=== PATIENT | female | born 1940 | race Caucasian/White ===

== ENCOUNTER 2020-05-04 05:41 | Inpatient (IN) ==
[2020-05-01 11:52] LABS: Basophils % 0.7 % (0.0-0.8); Eosinophils # 0.1 10*3/uL (0.0-0.87); Eosinophils % 1.5 % (0.00-10.9); Hemoglobin 10.6 GM/DL (12.0-16.0); Immature Granulocytes % 0.3 %; Immature Granulocytes Absolute 0.02 #; Lymphocytes # 0.8 10*3/uL (1.4-4.0); Lymphocytes % 12.6 % (21.3-54.2); Mean Corpuscular HGB Conc 32.1 GM/DL (32-36); Mean Corpuscular Volume 87.1 FL (87-102); Mean Platelet Volume 9.5 FL (9.6-12.0); Monocytes % 8.5 % (1.7-12.7); Neutrophils % 76.4 % (38.7-73.9); Platelet Count 234 T/CUMM (130-400); Red Blood Count 3.79 MC/CUMM (3.8-5.5); Red Cell Distribution Width 14.3 % (9.3-17.3); White Blood Count 6.1 T/CUMM (4-12)
[2020-05-01 12:35] LABS: Albumin 3.8 G/DL (3.4-5.0); Bilirubin,Total 0.5 MG/DL (0.2-1.0); Calcium 9.1 MG/DL (8.5-10.1); Total Protein 8.3 G/DL (6.4-8.3)
[2020-05-04] MEDS ORDERED: LACTATED RINGERS 1,000 ML IV SCH (06:00)
[2020-05-04] MEDS ORDERED: BUPIVACAINE MPF 0.25% 30 ML VIAL ONE (06:11)
[2020-05-04] MEDS ORDERED: TISSUE ADHESIVE 1 EACH APPLICATOR TOP ONE (06:12)
[2020-05-04] MEDS ORDERED: LIDOCAINE 1%/EPI INJ 20 ML VIAL ONE (06:12)
[2020-05-04] MEDS ORDERED: ceFAZolin 1,000 MG in SYRINGE 1 EACH IV ONE (06:30)
[2020-05-04] MEDS ORDERED: PROMETHAZINE INJ 25 MG in SODIUM CHLORIDE 0.9% 50 ML IV PRN (09:31)
[2020-05-04] MEDS ORDERED: ONDANSETRON 4 MG/2 ML VIAL IV PRN ×2 (09:31→09:52)
[2020-05-04] MEDS ORDERED: diphenhydrAMINE 50 MG/1 ML VIAL IV PRN (09:31)
[2020-05-04] MEDS ORDERED: MEPERIDINE 25 MG/1 ML VIAL IV PRN (09:31)
[2020-05-04] MEDS ORDERED: LIDOCAINE 2% 5 ML VIAL ONE (09:34)
[2020-05-04] MEDS ORDERED: fentaNYL 100 MCG/2 ML VIAL ONE (09:34)
[2020-05-04] MEDS ORDERED: propofoL 200 MG/20 ML VIAL IV ONE (09:34)
[2020-05-04] MEDS ORDERED: SEVOFLURANE 1 UNIT/15 MINUTE INH ONE (09:35)
[2020-05-04] MEDS ORDERED: ROCURONIUM 100 MG/10 ML VIAL IV ONE (09:35)
[2020-05-04] MEDS ORDERED: DEXAMETHASONE 4 MG/1 ML VIAL ONE (09:35)
[2020-05-04] MEDS ORDERED: ETOMIDATE 40 MG/20 ML VIAL IV ONE (09:35)
[2020-05-04] MEDS ORDERED: ONDANSETRON 4 MG/2 ML VIAL ONE (09:35)
[2020-05-04] MEDS ORDERED: LACTATED RINGERS 1,000 ML IV ONE (09:36)
[2020-05-04] MEDS ORDERED: KETOROLAC 30 MG/1 ML VIAL ONE (09:36)
[2020-05-04] MEDS ORDERED: NEOSTIGMINE 10 MG/10 ML VIAL ONE (09:36)
[2020-05-04] MEDS ORDERED: PHENYLEPHRINE 1 MG/10 ML SYRINGE IV ONE (09:36)
[2020-05-04] MEDS ORDERED: ACETAMINOPHEN 1,000 MG/100 ML VIAL IV ONE (09:36)
[2020-05-04] MEDS ORDERED: GLYCOPYRROLATE 0.4 MG/2 ML VIAL ONE (09:36)
[2020-05-04] MEDS ORDERED: ePHEDrine 50 MG/ML VIAL ONE (09:36)
[2020-05-04] MEDS ORDERED: GLUCAGON 1 MG VIAL IM PRN (09:56)
[2020-05-04] MEDS ORDERED: DEXTROSE 50% 25 GM/50 ML VIAL IV PRN (09:56)
[2020-05-04 11:08] LABS: Albumin 3.1 G/DL (3.4-5.0); Bilirubin,Total 0.8 MG/DL (0.2-1.0); Calcium 8.6 MG/DL (8.5-10.1); Osmolality,Calculated 281.1 MOS/KG (273-304); Total Protein 7.6 G/DL (6.4-8.3)
[2020-05-04] MEDS: INSULIN REGULAR 100 UNIT/ML SUBCUT SCH ×3 (11:49→21:23)
[2020-05-04] MEDS: DEXTROSE 5% LACTATED RINGERS 1,000 ML IV SCH ×2 (11:49→18:52)
[2020-05-04] MEDS: cefOXitin 1,000 MG in SYRINGE 1 EACH IV SCH ×2 (11:57→17:11)
[2020-05-04] MEDS: MORPHINE 4 MG/1 ML VIAL IV PRN (18:52)
[2020-05-05] MEDS: MORPHINE 4 MG/1 ML VIAL IV PRN (00:01)
[2020-05-05] MEDS: cefOXitin 1,000 MG in SYRINGE 1 EACH IV SCH ×5 (00:06→23:28)
[2020-05-05] MEDS: DEXTROSE 5% LACTATED RINGERS 1,000 ML IV SCH ×3 (03:30→23:10)
[2020-05-05 06:40] LABS: Albumin 2.4 G/DL (3.4-5.0); Bilirubin,Total 0.5 MG/DL (0.2-1.0); Calcium 8.3 MG/DL (8.5-10.1); Osmolality,Calculated 277.2 MOS/KG (273-304); Total Protein 6.7 G/DL (6.4-8.3)
[2020-05-05] MEDS: ATORVASTATIN 20 MG TABLET PO SCH (08:52)
[2020-05-05] MEDS: amLODIPine 10 MG TABLET PO SCH (08:53)
[2020-05-05] MEDS: PANTOPRAZOLE 40 MG TABLET PO SCH (08:53)
[2020-05-05] MEDS: INSULIN REGULAR 100 UNIT/ML SUBCUT SCH ×4 (08:59→21:29)
[2020-05-05 09:35] LABS: Basophils % 0.3 % (0.0-0.8); Eosinophils # 0.1 10*3/uL (0.0-0.87); Eosinophils % 0.9 % (0.00-10.9); Hematocrit 27.5 VOL% (35.7-47.0); Hemoglobin 8.8 GM/DL (12.0-16.0); Immature Granulocytes % 0.3 %; Immature Granulocytes Absolute 0.02 #; Lymphocytes # 0.9 10*3/uL (1.4-4.0); Lymphocytes % 13.5 % (21.3-54.2); Mean Corpuscular Volume 88.1 FL (87-102); Mean Platelet Volume 9.9 FL (9.6-12.0); Monocytes % 9.6 % (1.7-12.7); Neutrophils % 75.4 % (38.7-73.9); Platelet Count 195 T/CUMM (130-400); Red Blood Count 3.12 MC/CUMM (3.8-5.5); Red Cell Distribution Width 14.6 % (9.3-17.3); White Blood Count 6.7 T/CUMM (4-12)
[2020-05-05] MEDS ORDERED: NALOXONE 0.4 MG/ML VIAL IV PRN (09:45)
[2020-05-05] MEDS: HYDROmorphone PCA 30 MG/30 ML SYRINGE IV SCH (11:45)
[2020-05-06] MEDS: cefOXitin 1,000 MG in SYRINGE 1 EACH IV SCH ×4 (04:47→23:19)
[2020-05-06] MEDS: DEXTROSE 5% LACTATED RINGERS 1,000 ML IV SCH ×2 (07:15→14:48)
[2020-05-06] MEDS: amLODIPine 10 MG TABLET PO SCH (08:52)
[2020-05-06] MEDS: PANTOPRAZOLE 40 MG TABLET PO SCH (08:52)
[2020-05-06] MEDS: ATORVASTATIN 20 MG TABLET PO SCH (08:52)
[2020-05-06] MEDS: INSULIN REGULAR 100 UNIT/ML SUBCUT SCH ×4 (08:56→22:02)
[2020-05-06] MEDS: HYDROmorphone PCA 30 MG/30 ML SYRINGE IV SCH (17:53)
[2020-05-07] MEDS: cefOXitin 1,000 MG in SYRINGE 1 EACH IV SCH ×4 (05:36→22:32)
[2020-05-07] MEDS: DEXTROSE 5% LACTATED RINGERS 1,000 ML IV SCH (05:43)
[2020-05-07] MEDS: INSULIN REGULAR 100 UNIT/ML SUBCUT SCH ×4 (09:16→20:38)
[2020-05-07] MEDS: ATORVASTATIN 20 MG TABLET PO SCH (09:17)
[2020-05-07] MEDS: PANTOPRAZOLE 40 MG TABLET PO SCH (09:18)
[2020-05-07] MEDS: amLODIPine 10 MG TABLET PO SCH (09:18)
[2020-05-07] MEDS: HYDROmorphone PCA 30 MG/30 ML SYRINGE IV SCH (17:54)
[2020-05-08] MEDS: DEXTROSE 5% LACTATED RINGERS 1,000 ML IV SCH (01:44)
[2020-05-08] MEDS: cefOXitin 1,000 MG in SYRINGE 1 EACH IV SCH ×4 (04:54→22:43)
[2020-05-08] MEDS: PANTOPRAZOLE 40 MG TABLET PO SCH (09:49)
[2020-05-08] MEDS: amLODIPine 10 MG TABLET PO SCH (09:49)
[2020-05-08] MEDS: ATORVASTATIN 20 MG TABLET PO SCH (09:49)
[2020-05-08] MEDS: INSULIN REGULAR 100 UNIT/ML SUBCUT SCH ×4 (09:51→20:30)
[2020-05-08] MEDS: HYDROmorphone PCA 30 MG/30 ML SYRINGE IV SCH (10:00)
[2020-05-08] MEDS: INSULIN NPH/REGULAR 70/30 100 UNIT/ML SUBCUT SCH (17:04)
[2020-05-09] MEDS: cefOXitin 1,000 MG in SYRINGE 1 EACH IV SCH ×4 (04:55→23:49)
[2020-05-09 06:02] LABS: Basophils % 0.2 % (0.0-0.8); Eosinophils # 0.2 10*3/uL (0.0-0.87); Eosinophils % 2.6 % (0.00-10.9); Hematocrit 25.1 VOL% (35.7-47.0); Hemoglobin 8.1 GM/DL (12.0-16.0); Immature Granulocytes % 0.6 %; Immature Granulocytes Absolute 0.05 #; Lymphocytes % 11.8 % (21.3-54.2); Mean Corpuscular HGB Conc 32.3 GM/DL (32-36); Mean Platelet Volume 9.3 FL (9.6-12.0); Monocytes % 11.8 % (1.7-12.7); Platelet Count 272 T/CUMM (130-400); Red Blood Count 2.92 MC/CUMM (3.8-5.5)
[2020-05-09 06:30] LABS: Calcium 8.5 MG/DL (8.5-10.1)
[2020-05-09] MEDS: amLODIPine 10 MG TABLET PO SCH (08:37)
[2020-05-09] MEDS: INSULIN NPH/REGULAR 70/30 100 UNIT/ML SUBCUT SCH ×2 (08:37→18:02)
[2020-05-09] MEDS: PANTOPRAZOLE 40 MG TABLET PO SCH (08:37)
[2020-05-09] MEDS: ATORVASTATIN 20 MG TABLET PO SCH (08:37)
[2020-05-09] MEDS: INSULIN REGULAR 100 UNIT/ML SUBCUT SCH ×4 (08:37→20:51)
[2020-05-09] MEDS ORDERED: NON-FORMULARY MEDICATION (Empagliflozin [Jardiance] 10 mg Tablet) PO SCH (09:00)
[2020-05-09] MEDS: HYDROmorphone PCA 30 MG/30 ML SYRINGE IV SCH (10:49)
[2020-05-09] MEDS ORDERED: MAGNESIUM HYDROXIDE SUSP 30 ML UDCUP PO PRN (11:30)
[2020-05-09] MEDS ORDERED: ROPIVACAINE 0.5% 30 ML VIAL MISC INJ ONE (13:30)
[2020-05-09] MEDS ORDERED: LORazepam 1 MG TABLET PO ONE (13:30)
[2020-05-10] MEDS: cefOXitin 1,000 MG in SYRINGE 1 EACH IV SCH (05:23)
[2020-05-10] MEDS ORDERED: HYDROmorphone 2 MG TABLET PO PRN (07:35)
[2020-05-10] MEDS ORDERED: HYDROmorphone 2 MG/1 ML VIAL IV PRN (07:35)
[2020-05-10] MEDS: ATORVASTATIN 20 MG TABLET PO SCH (09:35)
[2020-05-10] MEDS: BACLOFEN 10 MG TABLET PO SCH ×3 (09:35→21:05)
[2020-05-10] MEDS: PANTOPRAZOLE 40 MG TABLET PO SCH (09:35)
[2020-05-10] MEDS: INSULIN NPH/REGULAR 70/30 100 UNIT/ML SUBCUT SCH ×2 (09:35→17:31)
[2020-05-10] MEDS: amLODIPine 10 MG TABLET PO SCH (09:35)
[2020-05-10] MEDS: GABAPENTIN 300 MG CAPSULE PO SCH ×3 (09:35→21:05)
[2020-05-10] MEDS: INSULIN REGULAR 100 UNIT/ML SUBCUT SCH ×4 (09:36→21:04)
[2020-05-10] MEDS: AMOXICILLIN 500 MG CAPSULE PO SCH ×2 (12:58→17:31)
[2020-05-10] MEDS: ACETAMINOPHEN 500 MG TABLET PO SCH ×2 (13:01→21:04)
[2020-05-10] MEDS: HYDROmorphone 2 MG TABLET PO SCH (21:05)
[2020-05-11] MEDS: ACETAMINOPHEN 500 MG TABLET PO SCH ×2 (05:30→14:19)
[2020-05-11 09:53] LABS: Basophils % 0.3 % (0.0-0.8); Eosinophils # 0.2 10*3/uL (0.0-0.87); Eosinophils % 2.5 % (0.00-10.9); Hematocrit 29.2 VOL% (35.7-47.0); Hemoglobin 9.2 GM/DL (12.0-16.0); Immature Granulocytes Absolute 0.07 #; Lymphocytes # 0.7 10*3/uL (1.4-4.0); Lymphocytes % 10.4 % (21.3-54.2); Mean Corpuscular HGB Conc 31.5 GM/DL (32-36); Mean Corpuscular Volume 86.6 FL (87-102); Mean Platelet Volume 9.2 FL (9.6-12.0); Monocytes % 7.4 % (1.7-12.7); Neutrophils % 78.4 % (38.7-73.9); Platelet Count 341 T/CUMM (130-400); Red Blood Count 3.37 MC/CUMM (3.8-5.5); Red Cell Distribution Width 13.9 % (9.3-17.3); White Blood Count 6.9 T/CUMM (4-12)
[2020-05-11] MEDS: INSULIN NPH/REGULAR 70/30 100 UNIT/ML SUBCUT SCH (09:54)
[2020-05-11] MEDS: amLODIPine 10 MG TABLET PO SCH (09:54)
[2020-05-11] MEDS: GABAPENTIN 300 MG CAPSULE PO SCH (09:55)
[2020-05-11] MEDS: AMOXICILLIN 500 MG CAPSULE PO SCH ×2 (09:55→13:14)
[2020-05-11] MEDS: ATORVASTATIN 20 MG TABLET PO SCH (09:55)
[2020-05-11] MEDS: BACLOFEN 10 MG TABLET PO SCH (09:55)
[2020-05-11] MEDS: PANTOPRAZOLE 40 MG TABLET PO SCH (09:55)
[2020-05-11] MEDS: INSULIN REGULAR 100 UNIT/ML SUBCUT SCH ×2 (10:01→14:17)
[2020-05-11 10:11] LABS: Calcium 8.5 MG/DL (8.5-10.1); Osmolality,Calculated 279.8 MOS/KG (273-304)
[2020-05-11 11:22] VITALS: BP 157/45
[2020-05-11] MEDS: HYDROmorphone 2 MG TABLET PO SCH (11:31)
== END 2020-05-11 15:20 | DRG 405 ==
LOC: N.OR 05:41 → N.SDSINP 05:43 → N.3E 09:52
PROVIDERS: ADMIT Surgery; ATTEND Surgery
PROC: LAPCHOL (2020-05-04 07:00)